=== PATIENT | female | born 1935 | race Caucasian/White ===

== ENCOUNTER → 2018-01-20 13:53 | Outpatient (CLI) | payer MEDICARE, SELFPAY | PROVIDERS: Family Provider Family Medicine; PCP Family Medicine; Visit Provider Family Medicine | DX: Z78.0 Asymptomatic menopausal state (principal); E07.9 Disorder of thyroid, unspecified | CPT/HCPCS: 77080 ==

== ENCOUNTER → 2018-06-02 13:55 | Outpatient (CLI) | payer MEDICARE, SELFPAY ==
--- NOTE | 2018-06-02 | DI.MRI.S_ITS ---
PROCEDURE: MR LUMBAR SPINE WO CON INDICATIONS: LOW BACK AND RIGHT LEG PAIN TECHNIQUE: Noncontrast sagittal T1 spin echo and T2 fast echo, sagittal STIR, axial T1 and T2 fast spin echo through the lumbar spine. In cases with scoliosis, additional coronal T2 fast spin echo may be performed. COMPARISON: None. FINDINGS: Image quality: Diagnostic, with note made of motion artifact. Alignment and Curvature: There is minimal retrolisthesis seen at L5-S1. Mild S-shaped scoliotic curvature can be seen on the scan. Bone Marrow: Marrow is of normal overall signal. No acute vertebral body compression fractures. Generalized fatty metaplasia is seen involving the sacrum with increased T1-weighted and T2-weighted signal, without associated increased STIR signal. Spinal Cord: Conus medullaris terminates at the L1 level. Visualized cord demonstrates normal signal and size. Paraspinous Soft Tissues: No paravertebral masses. Mild perihilar renal cysts are seen. T12-L1: No significant abnormality is seen. L1-L2: Level within normal limits. L2-L3: The disc height and disc signal are relatively well-preserved. Mild disc bulge is seen at this level. Mild facet joint hypertrophy is seen. Minimal bilateral neural foraminal narrowing is seen. No significant central canal narrowing is seen. L3-L4: Mild loss of disc height is seen. Loss of disc signal is seen. Mild to moderate disc bulge is seen. Moderate bilateral neural foraminal narrowing is seen, right worse than left. Moderate central canal narrowing is seen. L4-L5: Mild to moderate loss of disc height and disc signal are seen. Moderate generalized disc bulge is seen. Moderate facet hypertrophy is seen, right worse than left. There is moderate left-sided and moderate to severe right-sided neural foraminal narrowing seen. There is a degree of impingement seen upon the exiting right L4 nerve root. Mild central canal narrowing is seen. L5-S1: Moderate loss of disc height and disc signal are seen. Moderate disc bulge is seen, which is eccentric to the left. There is moderate right-sided and moderate to severe left-sided neural foraminal narrowing seen. A degree of impingement is seen upon the exiting left L5 nerve root. Mild central canal narrowing is seen. IMPRESSION: Multiple levels of lumbar spine degenerative changes are seen, which are most prominent at the L4-L5 and the L5-S1 levels. Dictated by: James Robles M.D. on 06/02/2018 at 14:09 Approved by: James Robles M.D. on 06/02/2018 at 14:15
== END ==
PROVIDERS: Family Provider Family Medicine; PCP Family Medicine; Visit Provider Family Medicine
DX: M54.41 Lumbago with sciatica, right side (principal)
CPT/HCPCS: 72148

== ENCOUNTER → 2018-12-28 09:31 | Outpatient (CLI) | payer MEDICARE, SELFPAY ==
--- NOTE | 2018-12-28 | DI.MG.S_ITS ---
BILATERAL DIGITAL SCREENING MAMMOGRAM 3D/2D WITH CAD: 12/28/2018 CLINICAL: Routine screening. Family history of breast cancer. Comparison is made to exams dated: 12/15/2017 mammogram, 12/09/2016 mammogram, and 12/05/2015 mammogram - [facility]. The tissue of both breasts is heterogeneously dense. This may lower the sensitivity of mammography. Current study was also evaluated with a Computer Aided Detection (CAD) system. No significant masses, calcifications, or other findings are seen in either breast. There has been no significant interval change. IMPRESSION: NEGATIVE There is no mammographic evidence of malignancy. A 1 year screening mammogram is recommended. This exam was interpreted at Station ID: [id number]. NOTE: For mammograms, a report in lay terms will be sent to the patient. Approximately 15% of breast malignancies will not be visualized mammographically. In the management of a palpable breast mass, a negative mammogram must not discourage biopsy of a clinically suspicious lesion. Electronically Signed By: Silver [email or web address]/[email or web address]:12/28/2018 13:41:58 copy to: Antonio Mendoza letter sent: Normal Exam ACR BI-RADS Category 1: Negative 3341F
== END ==
PROVIDERS: Family Provider Family Medicine; PCP Family Medicine; Visit Provider Family Medicine
DX: Z12.31 Encounter for screening mammogram for malignant neoplasm of breast (principal); Z80.3 Family history of malignant neoplasm of breast
CPT/HCPCS: 77063; 77067

== ENCOUNTER → 2020-01-09 14:29 | Outpatient (CLI) | payer MEDICARE, SELFPAY ==
--- NOTE | 2020-01-09 | DI.MG.S_ITS ---
BILATERAL DIGITAL SCREENING MAMMOGRAM 3D/2D WITH CAD: 01/09/2020 CLINICAL: Routine screening. Family history of breast cancer. Comparison is made to exams dated: 12/28/2018 mammogram, 12/15/2017 mammogram, and 12/09/2016 mammogram - [facility]. The tissue of both breasts is heterogeneously dense. This may lower the sensitivity of mammography. Current study was also evaluated with a Computer Aided Detection (CAD) system. There are benign vascular calcifications in the right breast. No significant masses, calcifications, or other findings are seen in either breast. There has been no significant interval change. IMPRESSION: There is no mammographic evidence of malignancy. A 1 year screening mammogram is recommended. This exam was interpreted at Station ID: [id number]. NOTE: For mammograms, a report in lay terms will be sent to the patient. Approximately 15% of breast malignancies will not be visualized mammographically. In the management of a palpable breast mass, a negative mammogram must not discourage biopsy of a clinically suspicious lesion. Electronically Signed By: Sara prado/leticia:01/09/2020 16:01:06 letter sent: Normal Exam ACR BI-RADS Category 2: Benign Finding(s) 3342F
== END ==
PROVIDERS: Family Provider Family Medicine; PCP Family Medicine; Referring Provider Family Medicine; Visit Provider Family Medicine
DX: Z12.31 Encounter for screening mammogram for malignant neoplasm of breast (principal); Z80.3 Family history of malignant neoplasm of breast
CPT/HCPCS: 77063; 77067

== ENCOUNTER → 2020-01-15 14:20 | Outpatient (CLI) | payer MEDICARE, SELFPAY ==
--- NOTE | 2020-01-15 | DI.RAD.S_ITS ---
PROCEDURE: XR KNEE RT 3V INDICATIONS: bilateral knee pain TECHNIQUE: 3 views of the knee were acquired. COMPARISON: [facility], KNEE 3V RIGHT, 11/29/2013, 10:33. [facility], KNEE 3V RIGHT, 11/22/2011, 9:16. FINDINGS: Bones: No fractures or dislocations. No suspicious bony lesions. Soft tissues: No joint effusion. No suspicious soft tissue calcifications. 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 Dictated by: Paulino Corea M.D. on 01/15/2020 at 15:39 Approved by: Paulino Corea M.D. on 01/15/2020 at 15:39
--- NOTE | 2020-01-15 | DI.RAD.S_ITS ---
PROCEDURE: XR KNEE LT 3V INDICATIONS: bilateral knee pain TECHNIQUE: 3 views of the knee were acquired. COMPARISON: [facility], KNEE 3V RIGHT, 11/29/2013, 10:33. [facility], KNEE 3V RIGHT, 11/22/2011, 9:16. FINDINGS: Bones: No fractures or dislocations. There is moderate medial and lateral compartment joint space narrowing and also moderate patellofemoral joint osteoarthritic change without effusion or loose body seen comment no prior trauma found. No suspicious bony lesions. Soft tissues: No joint effusion. No suspicious soft tissue calcifications. IMPRESSION: Moderate degenerative changes without prior trauma. Dictated by: Paulino Corea M.D. on 01/15/2020 at 15:40 Approved by: Paulino Corea M.D. on 01/15/2020 at 15:40
== END ==
PROVIDERS: Family Provider Family Medicine; PCP Family Medicine; Referring Provider Family Medicine; Visit Provider Family Medicine
DX: M25.561 Pain in right knee (principal); M25.562 Pain in left knee; M17.0 Bilateral primary osteoarthritis of knee
CPT/HCPCS: 73562

== ENCOUNTER → 2020-02-25 14:51 | Outpatient (CLI) | payer MEDICARE, SELFPAY | PROVIDERS: Family Provider Family Medicine; PCP Family Medicine; Referring Provider Family Medicine; Visit Provider Family Medicine | DX: M85.851 Other specified disorders of bone density and structure, right thigh (principal); Z78.0 Asymptomatic menopausal state; E07.9 Disorder of thyroid, unspecified | CPT/HCPCS: 77080 ==

== ENCOUNTER → 2021-02-19 14:30 | Outpatient (CLI) | payer MEDICARE, SELFPAY ==
--- NOTE | 2021-02-19 | DI.MG.S_ITS ---
BILATERAL DIGITAL SCREENING MAMMOGRAM 3D/2D WITH CAD: 02/19/2021 CLINICAL: Routine screening. Family history of breast cancer. Comparison is made to exams dated: 01/09/2020 mammogram, 12/28/2018 mammogram, and 12/15/2017 mammogram - [facility]. The tissue of both breasts is heterogeneously dense. This may lower the sensitivity of mammography. Current study was also evaluated with a Computer Aided Detection (CAD) system. There are benign vascular calcifications in the right breast. No significant masses, calcifications, or other findings are seen in either breast. There has been no significant interval change. IMPRESSION: BENIGN There is no mammographic evidence of malignancy. A 1 year screening mammogram is recommended. This exam was interpreted at Station ID: [id number]. NOTE: For mammograms, a report in lay terms will be sent to the patient. Approximately 15% of breast malignancies will not be visualized mammographically. In the management of a palpable breast mass, a negative mammogram must not discourage biopsy of a clinically suspicious lesion. Electronically Signed By: Tariq saucedo/[email or web address]:02/19/2021 16:27:53 letter sent: Normal Exam ACR BI-RADS Category 2: Benign Finding(s) 3342F
== END ==
PROVIDERS: Family Provider Family Medicine; PCP Family Medicine; Referring Provider Family Medicine; Visit Provider Family Medicine
DX: Z12.31 Encounter for screening mammogram for malignant neoplasm of breast (principal); Z80.3 Family history of malignant neoplasm of breast
CPT/HCPCS: 77063; 77067

== ENCOUNTER → 2021-11-17 14:15 | Outpatient (CLI) | payer MEDICARE, SELFPAY ==
--- NOTE | 2021-11-17 14:21 | DI.RAD.S_ITS ---
PROCEDURE: XR KNEE RT 1TO2V INDICATIONS: Right knee pain TECHNIQUE: 3 views of the knee were acquired. COMPARISON: [facility], , XR KNEE RT 3V, 01/15/2020, 14:17. FINDINGS: Bones: No fractures or dislocations. No suspicious bony lesions. Severe knee joint degeneration with joint space narrowing and periarticular osteophyte, most pronounced in the medial femorotibial joint. Soft tissues: Moderate joint effusion. No suspicious soft tissue calcifications. IMPRESSION: 1. Severe osteoarthritis. 2. Moderate knee joint effusion. Dictated by: Sonu Oconnor M.D. on 11/17/2021 at 17:31 Approved by: Sonu Oconnor M.D. on 11/17/2021 at 17:33
== END ==
PROVIDERS: Family Provider Family Medicine; PCP Family Medicine; Referring Provider Family Medicine; Visit Provider Family Medicine
DX: M17.11 Unilateral primary osteoarthritis, right knee (principal); M25.461 Effusion, right knee; M25.561 Pain in right knee
CPT/HCPCS: 73560

== ENCOUNTER → 2022-03-03 12:41 | Outpatient (CLI) | payer MEDICARE, SELFPAY ==
--- NOTE | 2022-03-03 12:45 | DI.MG.S_ITS ---
BILATERAL DIGITAL SCREENING MAMMOGRAM 3D/2D WITH CAD: 03/03/2022 CLINICAL: Routine screening. Family history of breast cancer. Comparison is made to exams dated: 02/19/2021 mammogram, 01/09/2020 mammogram, 12/28/2018 mammogram, and 12/15/2017 mammogram - [facility]. The tissue of both breasts is heterogeneously dense. This may lower the sensitivity of mammography. Current study was also evaluated with a Computer Aided Detection (CAD) system. There is a possible developing asymmetry with an obscured margin in the left breast middle depth superior region seen on the mediolateral oblique view only. No other significant masses, calcifications, or other findings are seen in either breast. IMPRESSION: INCOMPLETE: NEEDS ADDITIONAL IMAGING EVALUATION The possible developing asymmetry in the left breast is indeterminate. Additional views with possible ultrasound are recommended. Based on the Tyrer Cuzick model (a risk assessment model) the patient's lifetime risk is 0.5% and her 10 year risk is 0.0%. According to the ACR, ACS, and NCCN guidelines, an annual breast MRI exam along with mammogram is recommended if the patient's lifetime risk is 20% or greater. This exam was interpreted at Station ID: [id number]. NOTE: For mammograms, a report in lay terms will be sent to the patient. Approximately 15% of breast malignancies will not be visualized mammographically. In the management of a palpable breast mass, a negative mammogram must not discourage biopsy of a clinically suspicious lesion. Electronically Signed By: Alex Rae M.D. slc/:03/03/2022 17:43:07 letter sent: Additional Imaging Needed ACR BI-RADS Category 0: Incomplete [id number]
== END ==
PROVIDERS: Family Provider Family Medicine; PCP Family Medicine; Referring Provider Family Medicine; Visit Provider Family Medicine
DX: Z12.31 Encounter for screening mammogram for malignant neoplasm of breast (principal); Z80.3 Family history of malignant neoplasm of breast
CPT/HCPCS: 77063; 77067

== ENCOUNTER → 2023-06-01 10:54 | Outpatient (CLI) | payer MEDICARE, SELFPAY ==
--- NOTE | 2023-06-01 | DI.RAD.S_ITS ---
PROCEDURE: XR LUMBAR SPINE MIN 4V INDICATIONS: chronic low back pain with right-sided sciatica TECHNIQUE: 5 views of the lumbar spine were acquired, including bilateral oblique views. COMPARISON: None. FINDINGS: Bones: 5 nonrib-bearing vertebrae are present. There is trace anterolisthesis of L3 on L4, trace retrolisthesis of L5 on S1. There is severe disc space narrowing at L4-5 and L5-S1 with moderate to severe foraminal narrowing at these levels. Prominent disc space narrowing is also present at T11-12, T12-L1. Foraminal narrowing is also present T12-L1.. No vertebral body compression fractures. No suspicious bony lesions. Soft tissues: Overlying bowel gas pattern is normal. No suspicious soft tissue calcifications. Oblique images: No pars defects. IMPRESSION: Degenerative changes most severe at L5-S1 as above. Dictated by: Amber Gauthier M.D. on 06/01/2023 at 16:53 Approved by: Amber Gauthier M.D. on 06/01/2023 at 16:54
== END ==
PROVIDERS: Family Provider Family Medicine; PCP Family Medicine; Referring Provider Family Medicine; Visit Provider Family Medicine
DX: M54.41 Lumbago with sciatica, right side (principal); G89.29 Other chronic pain
CPT/HCPCS: 72110

== ENCOUNTER → 2025-01-31 13:03 | Outpatient (CLI) | payer MEDICARE, SELFPAY ==
--- NOTE | 2025-01-31 13:05 | DI.RAD.S_ITS ---
PROCEDURE: XR DEXA AXIAL SKELETON INDICATIONS: osteoporosis screening COMPARISON: [facility], CR, XR DEXA AXIAL SKELETON, 02/25/2020, 15:18. FINDINGS: Lumbar Spine: Bone mineral density 1.097 g/cm2, T score 0.2, normal, change from previous-5.9%. Statistical significance of bone mineral density change cannot be determined due to dissimilar scan types or analysis method.. Left Femoral Neck: Bone mineral density 0.686 g/cm2, T score -1.5, osteopenia. Left Hip: Bone mineral density 0.818 g/cm2, T score -1.0, normal, change from previous-10.7%. Statistical significance of bone mineral density change cannot be determined due to dissimilar scan types or analysis method.. Fracture Risk Calculation (when applicable): 10-year fracture risk of a major osteoporotic fracture 12 percent and of a hip fracture 3.4 percent. (T score greater or equal to -1.0 to: NORMAL) (T score from -1.1 to -2.4: OSTEOPENIA) (T score less than or equal to -2.5: OSTEOPOROSIS) IMPRESSION: Osteopenia elevates the patient's 10 year fracture risk as described. Statistical significance of bone mineral density change cannot be determined due to dissimilar scan types or analysis method. 10.7% decrease in left hip bone mineral density since prior exam. Follow-up guidelines as follows: Osteoporosis: Consider a repeat DEXA and Vertebral Fracture Assessment (VFA) exam in 2 years or sooner if medically necessary, to reassess this patient's status. Osteopenia: Consider a repeat DEXA in 2-3 years to reassess this patient's status, or if there is a new clinical indication. Normal: Consider a repeat DEXA in 5 years or sooner, or if there is a new clinical indication. All treatment decisions require clinical judgment and consideration of individual patient factors, including patient preferences, comorbidities, previous drug use, risk factors not captured in the FRAX model (e.g., frailty, falls, vitamin D deficiency, increased bone turnover, interval significant decline in bone density ) and possible under- or over-estimation of fracture risk by FRAX. In addition, the NOF Guide recommends that FDA-approved medical therapies be considered in postmenopausal women and men age >= 50 years with a: * Hip or vertebral (clinical or morphometric) fracture * T-score of <=-2.5 at the spine or hip * Ten-year fracture probability by FRAX of >= 3% for hip fracture or >=20% for major osteoporotic fracture. Dictated by: Vicky Mccoy M.D. on 01/31/2025 at 22:25 Approved by: Vicky Mccoy M.D. on 01/31/2025 at 22:27
== END ==
PROVIDERS: Family Provider Family Medicine; PCP Family Medicine; Referring Provider Family Medicine; Visit Provider Family Medicine
DX: Z13.820 Encounter for screening for osteoporosis (principal); M85.852 Other specified disorders of bone density and structure, left thigh; Z78.0 Asymptomatic menopausal state
CPT/HCPCS: 77080